=== PATIENT | female | born 1990 | race Caucasian/White ===

== ENCOUNTER 2021-02-09 08:10 | Outpatient (CLI) | payer BC ==
[2021-02-09 18:10] LABS: SARS-CoV-2 PCR by NAA Not Detected (NotDetected)
== END 2021-02-09 08:11 | disposition home or self-care (01) ==
LOC: LABBT 08:10
PROVIDERS: ATTEND Otolaryngology Plastic Surgery within the Head & Neck
DX: Z01.812 Encounter for preprocedural laboratory examination (principal); Z20.822 Contact with and (suspected) exposure to COVID-19
CPT/HCPCS: 87635; U0003; U0005

== ENCOUNTER 2021-02-14 12:24 | Day surgery (SDC) | payer BC ==
[2021-02-12 13:03] VITALS: BMI 32.0
[2021-02-14] MEDS ORDERED: Sodium Bicarbonate 2.5 MEQ/5 ML VIAL ONE (12:27)
[2021-02-14] MEDS ORDERED: Lidocaine 1% PF 5 ML VIAL ONE (12:27)
[2021-02-14 13:49] VITALS: BP 112/80; TEMP 98.2
== END 2021-02-14 13:30 | disposition home or self-care (01) ==
LOC: ULT 12:24
PROVIDERS: ATTEND Otolaryngology Plastic Surgery within the Head & Neck
DX: E04.1 Nontoxic single thyroid nodule (principal); E28.2 Polycystic ovarian syndrome; Z79.2 Long term (current) use of antibiotics; Z91.040 Latex allergy status
CPT/HCPCS: 76536